=== PATIENT | male | born 1950 | race African-American/Black ===

== ENCOUNTER 2017-08-24 08:00 | Outpatient (CLI) | payer MEDICARE, OTHER ==
[~2017-08-24] VITALS: Ht 175.3 cm; Wt 88.5 kg
[2017-08-24] VITALS (11 sets, daily range): BP systolic 128–160; BP diastolic 80–98
[~2017-08-24 08:00] MED LIST: AZILECT1 MG PO; B12 PO; CLONAZEPAM0.5 M1 PO; IMURAN50 MG; IRON TABLETS325 MG PO; MIRAPEX 0.250.25 MG PO; MIRAPEX ER4.5 MG PO; OMEPRAZOLE MAGN20 MG PO; SINEMET 25-1001 TAB PO
== END 2017-08-24 11:35 | disposition home or self-care (01) ==
LOC: COP 08:00
DX: K58.9 Irritable bowel syndrome, unspecified (principal); K51.90 Ulcerative colitis, unspecified, without complications
CPT/HCPCS: J1745

== ENCOUNTER 2017-10-17 09:10 | Outpatient (CLI) | payer MEDICARE, OTHER ==
[2017-10-17] VITALS (10 sets, daily range): BP systolic 111–154; BP diastolic 71–95
[2017-10-17 09:36] LABS: HEMOGLOBIN 15.4 g/dL (14.1-18.0); LYMPH # 1.6 K/mm3 (0.7-4.5); LYMPH % 44.3 % (10-50)
[2017-10-17 09:50] LABS: BUN 12 mg/dL (7-18)
[2017-10-17 09:51] LABS: GFR (ESTIMATED) 67 ML/MIN (>60)
== END 2017-10-17 12:35 | disposition home or self-care (01) ==
LOC: COP 09:10
PROVIDERS: Internal Medicine Gastroenterology
DX: K51.90 Ulcerative colitis, unspecified, without complications (principal)
CPT/HCPCS: J1745